=== PATIENT | female | born 1950 | race Caucasian/White ===

== ENCOUNTER 2022-01-21 21:47 | Inpatient (IN) | payer OTHER, MEDICAID ==
[~2022-01-21] VITALS: Ht 157.5 cm; Wt 95.3 kg
[2022-01-21] MEDS ORDERED: ONDANSETRON HCL 4 MG/2 ML VIAL IVP ONE (22:15)
[2022-01-21] MEDS ORDERED: NACL 0.9% 1,000 ML IV ONE (22:15)
--- NOTE | 2022-01-21 22:16 | NUR ---
Pt to bed 2 w/ c/o epigastric abdominal pain 12/19, n/v x "1 month" per pt. Pt states she has had decreased appetite and decreased energy "last few days". Pt denies blood in vomit or blood in stool. Denies fevers/body aches/chills. Pt denies chest pain. Respirations even and unlabored. Pt placed on traffic monitor specialist, bed in low position, side rails up.
[2022-01-21 22:24] VITALS: BP_SYST 98
[2022-01-21 22:42] LABS: BASOPHILS % (AUTO) 0.6 % (0.0-2.0); EOSINOPHILS # (AUTO) 0.1 K/uL (0.0-0.4); EOSINOPHILS % (AUTO) 1.5 % (0.0-4.0); HEMATOCRIT 39.6 % (36-48); HEMOGLOBIN 13.3 g/dL (12.0-16.0); LYMPHOCYTES # (AUTO) 1.6 K/uL (1.0-5.5); LYMPHOCYTES % (AUTO) 21.2 % (20.5-51.5); MEAN CORPUSCULAR HEMOGLOBIN 32 pg (27-31); MEAN CORPUSCULAR HGB CONC 34 % (32-36); MEAN CORPUSCULAR VOLUME 94 fL (79.0-98.0); MONOCYTES # (AUTO) 0.6 K/uL (0.0-1.0); NEUTROPHILS # (AUTO) 5.1 K/uL (1.8-7.7); NEUTROPHILS % (AUTO) 68.7 % (40.0-70.0); PLATELET COUNT (AUTO) 191 K/uL (130-430); RED CELL DISTRIBUTION WIDTH 14.4 % (9.0-15.0); WHITE BLOOD COUNT (AUTO) 7.5 K/uL (4.8-10.8)
[2022-01-21 22:56] LABS: CALCIUM 9.2 mg/dL (8.4-11.0); CREATININE 1.34 mg/dL (0.55-1.30)
[2022-01-21 23:02] LABS: ALBUMIN 3.8 g/dL (3.4-4.8); TOTAL BILIRUBIN 0.4 mg/dL (0.0-1.0)
[2022-01-21] MEDS ORDERED: CALCIUM GLUCONATE 1 GM in NS 100 ML IV ONE (23:45)
--- NOTE | 2022-01-22 00:11 | NUR ---
CALLED ADMITTING SPOKE TO ROSALINA TO CALL [facility] FOR AUTHORIZATION TO ADMIT OR TRANSFER
[2022-01-22] MEDS ORDERED: CALCIUM GLUCONATE 1 GM/10 ML VIAL ONE (00:15)
[2022-01-22 00:55] LABS: BILIRUBIN,URINE NEGATIVE (NEGATIVE); CLARITY/URINE CLEAR (CLEAR); COLOR,URINE YELLOW (YELLOW); GLUCOSE,URINE 3+ (NEGATIVE); KETONES,URINE NEGATIVE (NEGATIVE); LEUKOCYTE ESTERASE ,URINE NEGATIVE (NEGATIVE); NITRITE, URINE POSITIVE (NEGATIVE); PROTEIN URINE NEGATIVE (NEGATIVE); UROBILINOGEN,URINE 0.2 (0.2-1.0)
[2022-01-22 00:59] LABS: BLOOD, URINE TRACE (NEGATIVE)
--- NOTE | 2022-01-22 01:00 | NUR ---
Pt unable to provide list of at home medications.
[2022-01-22 01:04] LABS: BACTERIA,URINE MANY /HPF (None Seen); RBC,URINE 0-3 /HPF (0-3); YEAST,URINE Few /HPF (None Seen)
--- NOTE | 2022-01-22 01:25 | NUR ---
Admit bed requested Patient will be admitted to care of Dr.A MENDOZA. Admitted to TELE unit. Diagnosis ACUTE KIDNEY INJURY Inpatient (Yes or No) YES Observation (Yes or No) NO Orientation concerns or request close to nursing station (Yes or No) NO Covid Status NEGATIVE On vent or bipap NO Isolation requirements NO Needs a sitter NO From Home (Yes or if No enter name of facility) YES Requires Dialysis (Yes or No) NO Med Rec Completed (Yes of No) PENDING
[2022-01-22] MEDS: D5NS 1,000 ML IV SCH ×2 (01:30→11:40)
--- NOTE | 2022-01-22 01:35 | NUR ---
Palpated radial pulse at 70 bpm. conveyor monitor double counting.
--- NOTE | 2022-01-22 02:36 | NUR ---
Blood glucose 222.
[2022-01-22] MEDS ORDERED: MORPHINE 2 MG/ML INJ. SYRINGE IVP ONE (02:45)
[2022-01-22] MEDS ORDERED: MORPHINE 2 MG/ML INJ. SYRINGE ONE (02:51)
[2022-01-22 03:20] VITALS: BP_SYST 114
--- NOTE | 2022-01-22 03:20 | NUR ---
ADMISSION NOTE Received patient from ER via gurney. Patient admitted with diagnosis of ACUTE KIDNEY INJURY. Patient is awake, alert, oriented X4. Patient oriented to hospital room, call light, toileting, pain management and safety-teach back done. Patient informed that I will be HER nurse and that their room number is 129A. Personal belongings checked and Belongings List documented AND DAUGHTER WILL TAKE THEM HOME. Call light within reach.
--- NOTE | 2022-01-22 03:20 | NUR ---
Patient will be admitted to care of Dr. Iglesias. Admitted to telemetry unit. Will go to room 129A. Belongings list completed. Complete and up to date summary report printed. SBAR report given to Bess RN at bedside with opportunity for questions.
[2022-01-22] MEDS ORDERED: PRO40 PO (05:21)
[2022-01-22] MEDS ORDERED: ERGO1250 PO (05:21)
[2022-01-22] MEDS ORDERED: METF-518 PO (05:21)
[2022-01-22] MEDS ORDERED: DITXL5 PO (05:21)
[2022-01-22] MEDS ORDERED: SPIR25TA PO (05:21)
[2022-01-22] MEDS ORDERED: CAND32TA20 PO (05:21)
[2022-01-22] MEDS ORDERED: AMLO5TAB4 PO (05:21)
[2022-01-22] MEDS ORDERED: LIP80 PO (05:21)
[2022-01-22] MEDS ORDERED: CALC-1263 PO (05:21)
[2022-01-22] MEDS ORDERED: METO-442 PO (05:21)
[2022-01-22] MEDS ORDERED: DULA3PEN (05:21)
[2022-01-22] MEDS ORDERED: NEU300 PO (05:21)
[2022-01-22] MEDS ORDERED: ASPI-1457 PO (05:21)
[2022-01-22] MEDS ORDERED: EMPA25TA PO (05:21)
[2022-01-22] MEDS ORDERED: ERGOCALCIFEROL PO SCH (05:45)
[2022-01-22] MEDS ORDERED: DULAGLUTIDE SUBCUT SCH (05:45)
[2022-01-22] MEDS ORDERED: ONDANSETRON HCL 4 MG/2 ML VIAL IVP PRN (06:00)
[2022-01-22 06:16] LABS: BASOPHILS % (AUTO) 0.5 % (0.0-2.0); EOSINOPHILS # (AUTO) 0.1 K/uL (0.0-0.4); EOSINOPHILS % (AUTO) 1.7 % (0.0-4.0); HEMATOCRIT 37.5 % (36-48); HEMOGLOBIN 12.5 g/dL (12.0-16.0); LYMPHOCYTES # (AUTO) 1.6 K/uL (1.0-5.5); LYMPHOCYTES % (AUTO) 29.2 % (20.5-51.5); MEAN CORPUSCULAR HEMOGLOBIN 31 pg (27-31); MEAN CORPUSCULAR HGB CONC 33 % (32-36); MEAN CORPUSCULAR VOLUME 94 fL (79.0-98.0); MONOCYTES # (AUTO) 0.5 K/uL (0.0-1.0); MONOCYTES % (AUTO) 8.6 % (1.7-9.3); NEUTROPHILS # (AUTO) 3.4 K/uL (1.8-7.7); PLATELET COUNT (AUTO) 173 K/uL (130-430); RED BLOOD CELL COUNT(AUTO) 3.99 MIL/uL (4.2-6.2); RED CELL DISTRIBUTION WIDTH 14.3 % (9.0-15.0); WHITE BLOOD COUNT (AUTO) 5.6 K/uL (4.8-10.8)
--- NOTE | 2022-01-22 06:26 | NUR ---
ALL ADMITTING ORDERS ENTER, PENDING PHARMACY VERIFICATION.
[2022-01-22 06:35] LABS: CALCIUM 9.2 mg/dL (8.4-11.0); CREATININE 1.09 mg/dL (0.55-1.30); POTASSIUM 5.7 mmol/L (3.5-5.1)
[2022-01-22] MEDS: INSULIN REGULAR, HUMAN 100 UNITS/ML, 10 ML VIAL (humuLIN R) SUBCUT PRN ×4 (07:06→21:06)
--- NOTE | 2022-01-22 07:23 | NUR ---
REPORT GIVEN TO SHANNEN MULLEN FOR CONTINUITY OF CARE ALL QUESTIONS WERE ANSWERED AND CLINICAL PROJECT ASSISTANT VERBALIZED UNDERSTANDING.
[2022-01-22 07:30] VITALS: BP_SYST 125
[2022-01-22] MEDS ORDERED: ACETAMINOPHEN 325 MG TABLET PO PRN (07:45)
[2022-01-22] MEDS: amLODIPine BESYLATE 5 MG TABLET PO SCH (08:41)
[2022-01-22] MEDS: PANTOPRAZOLE SODIUM 40 MG TAB PO SCH (08:41)
[2022-01-22] MEDS: GABAPENTIN 300 MG CAPSULE PO SCH ×2 (08:41→20:49)
[2022-01-22] MEDS: METOPROLOL TARTRATE 50 MG TABLET PO SCH (08:41)
[2022-01-22] MEDS: ASPIRIN 81 MG TABLET(ECOTRIN) PO SCH (08:42)
[2022-01-22] MEDS: CALCIUM CARBONATE/VITAMIN D3 1 TAB TABLET PO SCH ×2 (08:42→20:48)
[2022-01-22] MEDS ORDERED: OXYBUTYNIN CHLORIDE 5 MG XL TAB PO SCH (09:00)
[2022-01-22] MEDS ORDERED: CANDESARTAN CILEXETIL 8 MG PO SCH (09:00)
[2022-01-22] MEDS ORDERED: SPIRONOLACTONE 25 MG TABLET (ALDACTONE) PO SCH (09:00)
[2022-01-22] MEDS ORDERED: EMPAGLIFLOZIN 20 MG PO SCH (09:00)
[2022-01-22] MEDS ORDERED: SODIUM POLYSTYRENE SULFONATE 15 GM/60 ML UDBTL PO ONE ×3 (10:15→18:45)
--- NOTE | 2022-01-22 10:47 | NUR ---
CONSULTATION PAGED REASON FOR CONSULTATION:SERA WAS CONSULT CALLED? -PERSON WHO WAS NOTIFIED:CHERIE CONSULTING PHYSICIAN:CARISSA CAREY MINIATURE SET BUILDER SPECIALTY:INFECTIOUS DISEASE MINIATURE SET BUILDER PHONE NUMBER:[phone] REQUESTING PHYSICIAN:VERONICA HERNANDEZ
--- NOTE | 2022-01-22 11:00 | NUR ---
NURSING NOTE: Pt. downgraded to Med surge
--- NOTE | 2022-01-22 11:31 | NUR ---
CONSULTATION PAGED REASON FOR CONSULTATION:NAUSEA/VOMITING WAS CONSULT CALLED?Y -PERSON WHO WAS NOTIFIED:EXCHANGE CONSULTING PHYSICIAN:FABIO CHAMPION ([employer] LECTURER) PRESIDENT SALES AND MARKETING SPECIALTY:GI PRESIDENT SALES AND MARKETING PHONE NUMBER:[phone] REQUESTING PHYSICIAN:VERONICA HERNANDEZ
--- NOTE | 2022-01-22 11:40 | NUR ---
CONSULTATION PAGED REASON FOR CONSULTATION:SERA WAS CONSULT CALLED?Y -PERSON WHO WAS NOTIFIED:IRENE CONSULTING PHYSICIAN:DOMITILA LANDON OUTREACH COORDINATOR SPECIALTY:NEPHRO OUTREACH COORDINATOR PHONE NUMBER:[phone] REQUESTING PHYSICIAN:VERONICA MARIN
[2022-01-22] MEDS: cefTRIAXone 1 GM IVPB PREMIX 50 ML IV SCH (11:56)
[2022-01-22 12:30] VITALS: BP_SYST 98
[2022-01-22] MEDS ORDERED: FUROSEMIDE 20 MG/2 ML VIAL IVP SCH (13:00)
[2022-01-22] MEDS ORDERED: DEXTROSE 50% JECT 50 ML DISP.SYRIN IVP ONE (13:15)
[2022-01-22] MEDS ORDERED: INSULIN REGULAR, HUMAN 100 UNITS/ML, 10 ML VIAL SUBCUT ONE (13:15)
[2022-01-22] MEDS ORDERED: FUROSEMIDE 20 MG/2 ML VIAL IVP ONE (13:15)
--- NOTE | 2022-01-22 13:24 | NUR ---
MD CALLED SAYED CALLED WANTED TO TALK TO RN. STATED PATIENT K 5.7 . GAVE NEW ORDERS . ORDER ENTERED .PRIMARY COVERING REMBERTO PAGE NOTIFIED.
[2022-01-22] MEDS ORDERED: INSULIN REGULAR, HUMAN 100 UNITS/ML, 10 ML VIAL IVP ONE (13:45)
[2022-01-22 16:30] VITALS: BP_SYST 92
[2022-01-22] MEDS ORDERED: INSULIN REGULAR, HUMAN 100 UNITS/ML, 10 ML VIAL SUBCUT SCH (17:00)
[2022-01-22 20:00] VITALS: BP_SYST 99
[2022-01-22] MEDS: OXYBUTYNIN CHLORIDE 5 MG TABLET PO SCH (20:49)
[2022-01-22] MEDS: ATORVASTATIN 20 MG TABLET PO SCH (20:50)
[2022-01-23] VITALS: BP_SYST 101
[2022-01-23] MEDS: D5NS 1,000 ML IV SCH ×2 (00:37→03:51)
[2022-01-23 06:00] LABS: BASOPHILS % (AUTO) 0.5 % (0.0-2.0); EOSINOPHILS # (AUTO) 0.1 K/uL (0.0-0.4); EOSINOPHILS % (AUTO) 2.2 % (0.0-4.0); HEMATOCRIT 37.7 % (36-48); HEMOGLOBIN 12.7 g/dL (12.0-16.0); LYMPHOCYTES # (AUTO) 1.9 K/uL (1.0-5.5); LYMPHOCYTES % (AUTO) 32.6 % (20.5-51.5); MEAN CORPUSCULAR HEMOGLOBIN 32 pg (27-31); MEAN CORPUSCULAR HGB CONC 34 % (32-36); MEAN CORPUSCULAR VOLUME 94 fL (79.0-98.0); MONOCYTES # (AUTO) 0.4 K/uL (0.0-1.0); MONOCYTES % (AUTO) 7.6 % (1.7-9.3); NEUTROPHILS # (AUTO) 3.3 K/uL (1.8-7.7); NEUTROPHILS % (AUTO) 57.1 % (40.0-70.0); PLATELET COUNT (AUTO) 180 K/uL (130-430); RED CELL DISTRIBUTION WIDTH 14.2 % (9.0-15.0); WHITE BLOOD COUNT (AUTO) 5.7 K/uL (4.8-10.8)
[2022-01-23] MEDS: INSULIN REGULAR, HUMAN 100 UNITS/ML, 10 ML VIAL (humuLIN R) SUBCUT PRN ×4 (06:18→22:57)
[2022-01-23 06:43] LABS: ALANINE AMINOTRANSFERASE 23 U/L (12-78); ALBUMIN 3.2 g/dL (3.4-4.8); ANION GAP 6 (5-15); ASPARTATE AMINOTRANSFERASE 22 U/L (10-37); CALCIUM 8.7 mg/dL (8.4-11.0); CHLORIDE 108 mmol/L (98-107); CREATININE 1.01 mg/dL (0.55-1.30); GLUCOSE 193 mg/dL (70-99); PHOSPHORUS 4.1 mg/dL (2.7-4.5); POTASSIUM 5.3 mmol/L (3.5-5.1); SODIUM SERUM 141 mmol/L (136-145); TOTAL BILIRUBIN 0.4 mg/dL (0.0-1.0); UREA NITROGEN, BLOOD 35 mg/dL (8-21)
--- NOTE | 2022-01-23 07:15 | NUR ---
received report from endorsing concrete pipe maker RN for the continuity of care, patient lying on bed, awake, oriented, no signs of acute distress noted at this time, will continue to monitor.
[2022-01-23 07:19] LABS: GFR AFRICAN AMERICAN 70 mL/min (>90)
[2022-01-23 07:20] LABS: C-REACTIVE PROTEIN QUANT < 0.2 mg/dL (0-0.5)
[2022-01-23] MEDS ORDERED: LOSARTAN POTASSIUM 50 MG TABLET (COZAAR) PO SCH (09:00)
[2022-01-23] MEDS: amLODIPine BESYLATE 5 MG TABLET PO SCH (09:00)
[2022-01-23] MEDS: METOPROLOL TARTRATE 50 MG TABLET PO SCH (09:00)
[2022-01-23] MEDS: ASPIRIN 81 MG TABLET(ECOTRIN) PO SCH (09:17)
[2022-01-23] MEDS: OXYBUTYNIN CHLORIDE 5 MG TABLET PO SCH ×2 (09:17→22:54)
[2022-01-23] MEDS: GABAPENTIN 300 MG CAPSULE PO SCH ×2 (09:17→22:54)
[2022-01-23] MEDS: CALCIUM CARBONATE/VITAMIN D3 1 TAB TABLET PO SCH ×2 (09:18→21:00)
[2022-01-23] MEDS: PANTOPRAZOLE SODIUM 40 MG TAB PO SCH (09:18)
[2022-01-23] MEDS ORDERED: SODIUM POLYSTYRENE SULFONATE 15 GM/60 ML UDBTL PO ONE (10:30)
[2022-01-23 10:49] LABS: ERYTHROCYTE SEDIMENTATION RATE 14 MM/HR (0-20)
[2022-01-23 12:30] VITALS: BP_SYST 119
[2022-01-23] MEDS: cefTRIAXone 1 GM IVPB PREMIX 50 ML IV SCH (12:35)
[2022-01-23] MEDS: ACETAMINOPHEN 325 MG TABLET PO PRN (13:51)
[2022-01-23 16:00] VITALS: BP_SYST 107
--- NOTE | 2022-01-23 19:30 | NUR ---
RECIVED REPORT ON PATIENT FROM REMBERTO THOMAS, ASSUMED CARE, AND STARTED ASSESSMENT.
[2022-01-23 20:00] VITALS: BP_SYST 115
[2022-01-23] MEDS: ATORVASTATIN 20 MG TABLET PO SCH (22:54)
[2022-01-24] MEDS: INSULIN REGULAR, HUMAN 100 UNITS/ML, 10 ML VIAL (humuLIN R) SUBCUT PRN ×2 (06:29→11:18)
[2022-01-24 06:44] LABS: BASOPHILS % (AUTO) 0.6 % (0.0-2.0); EOSINOPHILS # (AUTO) 0.1 K/uL (0.0-0.4); EOSINOPHILS % (AUTO) 2.3 % (0.0-4.0); HEMATOCRIT 36.6 % (36-48); HEMOGLOBIN 12.2 g/dL (12.0-16.0); LYMPHOCYTES % (AUTO) 32.3 % (20.5-51.5); MEAN CORPUSCULAR HEMOGLOBIN 31 pg (27-31); MEAN CORPUSCULAR HGB CONC 33 % (32-36); MEAN CORPUSCULAR VOLUME 94 fL (79.0-98.0); MONOCYTES # (AUTO) 0.5 K/uL (0.0-1.0); MONOCYTES % (AUTO) 8.3 % (1.7-9.3); NEUTROPHILS # (AUTO) 3.5 K/uL (1.8-7.7); NEUTROPHILS % (AUTO) 56.5 % (40.0-70.0); PLATELET COUNT (AUTO) 175 K/uL (130-430); RED BLOOD CELL COUNT(AUTO) 3.89 MIL/uL (4.2-6.2); WHITE BLOOD COUNT (AUTO) 6.1 K/uL (4.8-10.8)
[2022-01-24 07:08] LABS: ANION GAP 7 (5-15); CHLORIDE 105 mmol/L (98-107); CREATININE 0.88 mg/dL (0.55-1.30); GLUCOSE 177 mg/dL (70-99); POTASSIUM 4.2 mmol/L (3.5-5.1); SODIUM SERUM 140 mmol/L (136-145); UREA NITROGEN, BLOOD 25 mg/dL (8-21)
--- NOTE | 2022-01-24 07:10 | NUR ---
REPORT WAS GIVEN TO REMBERTO THOMAS, AND CARE WAS TURNED OVER TO HIM.
[2022-01-24 08:00] VITALS: BP_SYST 114
[2022-01-24 08:00] LABS: GFR AFRICAN AMERICAN 82 mL/min (>90)
[2022-01-24 08:35] LABS: C-REACTIVE PROTEIN QUANT < 0.2 mg/dL (0-0.5)
[2022-01-24] MEDS: METOPROLOL TARTRATE 50 MG TABLET PO SCH (09:00)
[2022-01-24] MEDS: amLODIPine BESYLATE 5 MG TABLET PO SCH (09:00)
[2022-01-24] MEDS: GABAPENTIN 300 MG CAPSULE PO SCH (10:55)
[2022-01-24] MEDS: CALCIUM CARBONATE/VITAMIN D3 1 TAB TABLET PO SCH (10:55)
[2022-01-24] MEDS: ASPIRIN 81 MG TABLET(ECOTRIN) PO SCH (10:56)
[2022-01-24] MEDS: PANTOPRAZOLE SODIUM 40 MG TAB PO SCH (11:02)
[2022-01-24] MEDS: OXYBUTYNIN CHLORIDE 5 MG TABLET PO SCH (11:03)
[2022-01-24] MEDS: cefTRIAXone 1 GM IVPB PREMIX 50 ML IV SCH (11:04)
[2022-01-24 11:15] LABS: ERYTHROCYTE SEDIMENTATION RATE 14 MM/HR (0-20)
[2022-01-24 12:00] VITALS: BP_SYST 109
[2022-01-24] MEDS ORDERED: CIPR500T5 PO (12:47)
[2022-01-24] MEDS ORDERED: ONDA-8 TL (12:50)
[2022-01-24] MEDS: ACETAMINOPHEN 325 MG TABLET PO PRN (15:07)
[2022-01-24 16:42] VITALS: BP_SYST 109
[2022-01-24 17:23] VITALS: BP_SYST 124
--- NOTE | 2022-01-24 17:40 | NUR ---
D/C Patient Patient given medication reconciliation form and D/C instructions. Exit Care provided. Patient verbalized understanding. MD discussed with patient the results and treatment provided. Ambulatory with steady gait for discharge to home. Patient in stable condition, ID band removed. IV catheter removed, intact and dressing applied, no active bleeding. E script sent to preferred pharmacy. All belongings sent with patient.
== END 2022-01-24 17:40 | disposition home or self-care (01) | DRG 871 ==
LOC: SED 21:47 → STU 01-22 01:23 → SMU 01-22 10:37
PROVIDERS: ADMIT Preventive Medicine Preventive Medicine/Occupational Environmental Medicine; ATTEND Preventive Medicine Preventive Medicine/Occupational Environmental Medicine
DX: A41.9 Sepsis, unspecified organism (principal); N17.0 Acute kidney failure with tubular necrosis; E87.1 Hypo-osmolality and hyponatremia; N39.0 Urinary tract infection, site not specified; E11.65 Type 2 diabetes mellitus with hyperglycemia; E87.5 Hyperkalemia; I12.9 Hypertensive chronic kidney disease with stage 1 through stage 4 chronic kidney disease, or unspecified chronic kidney disease; Z20.822 Contact with and (suspected) exposure to COVID-19; N18.9 Chronic kidney disease, unspecified; K52.9 Noninfective gastroenteritis and colitis, unspecified; E88.09 Other disorders of plasma-protein metabolism, not elsewhere classified; R79.89 Other specified abnormal findings of blood chemistry; E11.22 Type 2 diabetes mellitus with diabetic chronic kidney disease; B96.20 Unspecified Escherichia coli [E. coli] as the cause of diseases classified elsewhere; E66.9 Obesity, unspecified; Z79.4 Long term (current) use of insulin; Z68.38 Body mass index [BMI] 38.0-38.9, adult; Z90.49 Acquired absence of other specified parts of digestive tract
CPT/HCPCS: 36415; 76376; 76770; 80048; 80053; 81000; 82570; 82962; 83735; 84100; 84484; 85025; 85651-TC; 86140; 87086; 93005; 96365; 99291; 99292; J0610; J0696; J1815; J1940; J2270; J2405; J7030

== ENCOUNTER 2023-10-07 15:06 | Inpatient (IN) | payer OTHER, MEDICAID ==
[~2023-10-07] VITALS: Ht 157.5 cm; Wt 95.3 kg
[~2023-10-07 15:06] MED LIST: AMLO5TAB4 PO; ASPI-1457 PO; CALC-1263 PO; CAND32TA20 PO; CIPR500T5 PO; DITXL5 PO; DULA3PEN; EMPA25TA PO; ERGO1250 PO; LIP80 PO; METF-518 PO; METO-442 PO; NEU300 PO; ONDA-8 TL; PRO40 PO; SPIR25TA PO
[2023-10-07 15:12] VITALS: BP_SYST 153; PULSE 125; RESP 18; TEMP 98.3; O2SAT 98
[2023-10-07] MEDS: NACL 0.9% 1,000 ML IV ONE ×2 (15:46→23:52)
[2023-10-07 16:00] LABS: BASOPHILS % (AUTO) 0.2 % (0.0-2.0); EOSINOPHILS % (AUTO) 0.1 % (0.0-4.0); HEMATOCRIT 38.8 % (36-48); HEMOGLOBIN 13.3 g/dL (12.0-16.0); LYMPHOCYTES # (AUTO) 0.7 K/uL (1.0-5.5); LYMPHOCYTES % (AUTO) 6.3 % (20.5-51.5); MEAN CORPUSCULAR HEMOGLOBIN 32 pg (27-31); MEAN CORPUSCULAR HGB CONC 34 % (32-36); MEAN CORPUSCULAR VOLUME 92 fL (79.0-98.0); MONOCYTES # (AUTO) 0.5 K/uL (0.0-1.0); MONOCYTES % (AUTO) 4.6 % (1.7-9.3); NEUTROPHILS # (AUTO) 9.8 K/uL (1.8-7.7); NEUTROPHILS % (AUTO) 88.8 % (40.0-70.0); PLATELET COUNT (AUTO) 189 K/uL (130-430); RED CELL DISTRIBUTION WIDTH 13.9 % (9.0-15.0); WHITE BLOOD COUNT (AUTO) 11.1 K/uL (4.8-10.8)
[2023-10-07] MEDS: ONDANSETRON HCL 4 MG/2 ML VIAL IVP ONE (16:02)
[2023-10-07 16:16] LABS: CALCIUM 9.1 mg/dL (8.4-11.0); CREATININE 1.28 mg/dL (0.55-1.30); GLUCOSE 219 mg/dL (74-106); UREA NITROGEN, BLOOD 37 mg/dL (8-21)
[2023-10-07 16:36] LABS: SODIUM SERUM 136 mmol/L (136-145)
[2023-10-07 16:37] LABS: ANION GAP 18 (5-15); CARBON DIOXIDE 20 mmol/L (23-29); CHLORIDE 98 mmol/L (98-107)
[2023-10-07 16:49] LABS: BILIRUBIN,URINE NEGATIVE (NEGATIVE); COLOR,URINE YELLOW (YELLOW); GLUCOSE,URINE 3+ (NEGATIVE); KETONES,URINE NEGATIVE (NEGATIVE); LEUKOCYTE ESTERASE ,URINE TRACE (NEGATIVE); NITRITE, URINE POSITIVE (NEGATIVE); PH,URINE 5.5 (5.0-8.0); PROTEIN URINE NEGATIVE (NEGATIVE); UROBILINOGEN,URINE 0.2 (0.2-1.0)
[2023-10-07] MEDS: KETOROLAC TROMETHAMINE 30 MG VIAL IVP ONE (16:50)
[2023-10-07] MEDS: DIPHENHYDRAMINE INJ 50 MG/ML VIAL IVP ONE (16:50)
[2023-10-07] MEDS: METOCLOPRAMIDE HCL 10 MG/2 ML VIAL IVP ONE (16:50)
[2023-10-07 16:51] LABS: BLOOD, URINE TRACE (NEGATIVE); CLARITY/URINE HAZY (CLEAR)
[2023-10-07] MEDS ORDERED: cefTRIAXone 1 GM VIAL ONE (17:26)
[2023-10-07] MEDS: cefTRIAXone 1 GM in D5W 50 ML IV ONE (17:29)
[2023-10-07 17:37] LABS: BACTERIA,URINE MODERATE /HPF (None Seen); WBC,URINE 20-50 /HPF (0-3)
[2023-10-07] MEDS ORDERED: HYDROcodone/ACETAMIN 10-325 MG TAB PO PRN (18:00)
[2023-10-07] MEDS ORDERED: ONDANSETRON HCL 4 MG/2 ML VIAL IVP PRN (18:00)
[2023-10-07] MEDS ORDERED: LORazepam 2 MG/ML VIAL IVP PRN (18:00)
[2023-10-07] MEDS: METOPROLOL TARTRATE 25 MG TABLET PO ONE (18:15)
[2023-10-07] MEDS ORDERED: AMLO5TAB92 PO (18:16)
[2023-10-07] MEDS ORDERED: CAND16TA29 PO (18:16)
[2023-10-07] MEDS ORDERED: LATA2.5D14 EACH EYE (18:16)
[2023-10-07] MEDS ORDERED: CAND32TA22 PO (18:16)
[2023-10-07] MEDS ORDERED: METO-304 PO (18:16)
[2023-10-07] MEDS ORDERED: DAPA10TA PO (18:16)
[2023-10-07] MEDS ORDERED: ATOR-1 PO (18:16)
[2023-10-07] MEDS ORDERED: SERT25TA77 PO (18:18)
[2023-10-07] MEDS ORDERED: GABA300T25 PO (18:18)
[2023-10-07] MEDS: HYDROcodone/ACETAMIN 5-325 MG TAB (NORCO/ VICODIN) PO PRN (18:35)
[2023-10-07] MEDS ORDERED: DEXTROSE 50% JECT 50 ML DISP.SYRIN IVP PRN (19:30)
[2023-10-07] MEDS ORDERED: ZOLPIDEM TARTRATE 5 MG TABLET PO PRN (19:30)
[2023-10-07] MEDS: NACL 0.9% 1,000 ML IV SCH (19:49)
[2023-10-07] MEDS: LATANOPROST 2.5 ML DROPS (XALATAN) BOTH EYES SCH (21:00)
[2023-10-07 22:41] LABS: ALANINE AMINOTRANSFERASE 18 U/L (12-78); ALBUMIN 3.3 g/dL (3.4-4.8); ASPARTATE AMINOTRANSFERASE < 5 U/L (10-37); BILIRUBIN,DIRECT 0.1 mg/dL (0.0-0.3); LIPASE 28 U/L (16-77); TOTAL BILIRUBIN 0.4 mg/dL (0.0-1.0); TOTAL PROTEIN, SERUM 7.4 g/dL (6.4-8.3)
[2023-10-07 23:06] VITALS: BP_SYST 91; PULSE 89; RESP 18; TEMP 98.6; O2SAT 94
[2023-10-07] MEDS: ATORVASTATIN 20 MG TABLET PO SCH (23:58)
[2023-10-07] MEDS: GABAPENTIN 300 MG CAPSULE PO SCH (23:58)
[2023-10-08] VITALS (8 sets, daily range): BP systolic 91–171; PULSE 83–118; RESP 16–21; TEMP 96.8–99.7; O2SAT 93–96
[2023-10-08] MEDS: HEPARIN SODIUM,PORCINE 5,000 UNITS/ML VIAL SUBCUT SCH (00:02)
[2023-10-08] MEDS: INSULIN LISPRO SLIDING SCALE 100 UNITS/ML, 3 ML VIAL (humaLOG) SUBCUT PRN (00:07)
[2023-10-08] MEDS: NACL 0.9% 1,000 ML IV ONE (02:50)
[2023-10-08] MEDS: cefTRIAXone 1 GM IVPB PREMIX 50 ML IV ONE ×2 (02:55→03:19)
[2023-10-08] MEDS: VANCOMYCIN HCL 1 GM/NS PREMIX 250 ML IV ONE (02:57)
[2023-10-08] MEDS: ACETAMINOPHEN 325 MG TABLET PO PRN ×2 (02:59→18:27)
[2023-10-08] MEDS ORDERED: IPRATROPIUM/ALBUTEROL SULFATE 3 ML AMPUL.NEB (DUONEB) INH PRN ×2 (03:00)
[2023-10-08] MEDS: ONDANSETRON HCL 4 MG/2 ML VIAL IVP ONE (03:00)
[2023-10-08] MEDS: VANCOMYCIN HCL 1000 MG/VIAL IV ONE (03:19)
[2023-10-08 04:05] LABS: ANION GAP 11 (5-15); CALCIUM 7.8 mg/dL (8.4-11.0); CARBON DIOXIDE 20 mmol/L (23-29); CHLORIDE 106 mmol/L (98-107); CREATININE 1.21 mg/dL (0.55-1.30); GLUCOSE 150 mg/dL (74-106); SODIUM SERUM 137 mmol/L (136-145); UREA NITROGEN, BLOOD 37 mg/dL (8-21)
[2023-10-08 04:09] LABS: ALANINE AMINOTRANSFERASE 21 U/L (12-78); ASPARTATE AMINOTRANSFERASE 6 U/L (10-37); TOTAL BILIRUBIN 0.4 mg/dL (0.0-1.0); TOTAL PROTEIN, SERUM 6.4 g/dL (6.4-8.3)
[2023-10-08 04:21] LABS: BASOPHILS % (AUTO) 0.3 % (0.0-2.0); EOSINOPHILS % (AUTO) 0.3 % (0.0-4.0); HEMATOCRIT 36.7 % (36-48); HEMOGLOBIN 12.1 g/dL (12.0-16.0); LYMPHOCYTES # (AUTO) 0.6 K/uL (1.0-5.5); LYMPHOCYTES % (AUTO) 11.9 % (20.5-51.5); MEAN CORPUSCULAR HEMOGLOBIN 31 pg (27-31); MEAN CORPUSCULAR HGB CONC 33 % (32-36); MEAN CORPUSCULAR VOLUME 94 fL (79.0-98.0); MONOCYTES # (AUTO) 0.1 K/uL (0.0-1.0); MONOCYTES % (AUTO) 1.4 % (1.7-9.3); NEUTROPHILS # (AUTO) 4.4 K/uL (1.8-7.7); NEUTROPHILS % (AUTO) 86.1 % (40.0-70.0); PLATELET COUNT (AUTO) 152 K/uL (130-430); RED BLOOD CELL COUNT(AUTO) 3.89 MIL/uL (4.2-6.2); RED CELL DISTRIBUTION WIDTH 14.2 % (9.0-15.0); WHITE BLOOD COUNT (AUTO) 5.1 K/uL (4.8-10.8)
[2023-10-08 04:22] LABS: INR 1.1 (0.8-1.2); PROTHROMBIN TIME 11.7 SECS (9.5-12.5)
[2023-10-08] MEDS: amLODIPine BESYLATE 5 MG TABLET PO SCH (09:00)
[2023-10-08] MEDS ORDERED: amLODIPine BESYLATE 5 MG TABLET PO SCH (09:00)
[2023-10-08] MEDS ORDERED: METOPROLOL SUCCINATE 50 MG TAB.SR.24H (TOPROL XL) PO SCH (09:00)
[2023-10-08] MEDS ORDERED: iohexoL 350 mgI/mL, 100 ML INFUS..BTL IV ONE (09:13)
[2023-10-08] MEDS: ASPIRIN 81 MG TAB.CHEW PO SCH (10:08)
[2023-10-08] MEDS: METOCLOPRAMIDE HCL 10 MG/2 ML VIAL IVP ONE (12:45)
[2023-10-08] MEDS ORDERED: INSU300I3 SQ (13:09)
[2023-10-08] MEDS ORDERED: OMEG-42 PO (13:09)
[2023-10-08] MEDS ORDERED: INSU200I SQ (13:09)
[2023-10-08] MEDS ORDERED: OSC500 PO (13:09)
[2023-10-08] MEDS: METOCLOPRAMIDE HCL 10 MG/2 ML VIAL IVP SCH (17:28)
[2023-10-08] MEDS: DOCUSATE SODIUM 100 MG CAPSULE PO SCH (20:19)
[2023-10-08] MEDS: metroNIDAZOLE 500 mg/NS 200 ML IV ONE (22:19)
[2023-10-08] MEDS: AZITHROMYCIN 500 MG/VIAL (ZITHROMAX) IV ONE (22:20)
[2023-10-08] MEDS: metroNIDAZOLE 500 mg/NS 100 ML IV SCH (22:23)
[2023-10-08] MEDS: AZITHROMYCIN 500 MG in NS 250 ML IV SCH (23:28)
[2023-10-09 00:15] VITALS: BP_SYST 101; PULSE 87; RESP 16; TEMP 96.8; O2SAT 93
[2023-10-09 06:45] LABS: BASOPHILS % (AUTO) 0.3 % (0.0-2.0); EOSINOPHILS # (AUTO) 0.2 K/uL (0.0-0.4); EOSINOPHILS % (AUTO) 2.1 % (0.0-4.0); HEMATOCRIT 35.3 % (36-48); HEMOGLOBIN 11.8 g/dL (12.0-16.0); LYMPHOCYTES # (AUTO) 1.3 K/uL (1.0-5.5); LYMPHOCYTES % (AUTO) 17.4 % (20.5-51.5); MEAN CORPUSCULAR HEMOGLOBIN 31 pg (27-31); MEAN CORPUSCULAR HGB CONC 33 % (32-36); MEAN CORPUSCULAR VOLUME 94 fL (79.0-98.0); MONOCYTES # (AUTO) 1.2 K/uL (0.0-1.0); NEUTROPHILS # (AUTO) 4.9 K/uL (1.8-7.7); NEUTROPHILS % (AUTO) 64.2 % (40.0-70.0); PLATELET COUNT (AUTO) 195 K/uL (130-430); RED BLOOD CELL COUNT(AUTO) 3.77 MIL/uL (4.2-6.2); RED CELL DISTRIBUTION WIDTH 14.2 % (9.0-15.0); WHITE BLOOD COUNT (AUTO) 7.7 K/uL (4.8-10.8)
[2023-10-09 07:03] LABS: ANION GAP 5 (5-15); CALCIUM 8.8 mg/dL (8.4-11.0); CARBON DIOXIDE 25 mmol/L (23-29); CHLORIDE 111 mmol/L (98-107); CREATININE 0.92 mg/dL (0.55-1.30); GLUCOSE 143 mg/dL (74-106); POTASSIUM 4.5 mmol/L (3.5-5.1); SODIUM SERUM 141 mmol/L (136-145); UREA NITROGEN, BLOOD 17 mg/dL (8-21)
[2023-10-09 08:00] VITALS: BP_SYST 131; PULSE 101; RESP 18; TEMP 98.8; O2SAT 93
[2023-10-09] MEDS: cefTRIAXone 1 GM in D5W 50 ML IV SCH (08:48)
[2023-10-09] MEDS: INSULIN GLARGINE 100 UNITS/ML, 10 ML VIAL SUBCUT SCH (08:50)
[2023-10-09] MEDS ORDERED: VANCOMYCIN HCL 1.25 GM/NS 250 ML IV SCH (09:00)
[2023-10-09 11:50] VITALS: BP_SYST 112; PULSE 92; RESP 20; TEMP 99; O2SAT 93
[2023-10-09] MEDS: BISACODYL 5 MG TABLET.DR (DULCOLAX) PO ONE (12:03)
[2023-10-09 16:49] VITALS: BP_SYST 106; PULSE 86; RESP 20; TEMP 99.1; O2SAT 95
[2023-10-09 19:50] VITALS: O2SAT 96
[2023-10-09 20:00] VITALS: BP_SYST 121; PULSE 91; RESP 16; TEMP 97.6; O2SAT 96
[2023-10-10 00:33] VITALS: BP_SYST 117; PULSE 85; RESP 19; TEMP 98.4; O2SAT 96
[2023-10-10 08:01] VITALS: BP_SYST 117; PULSE 88; RESP 17; TEMP 97.4; O2SAT 96
[2023-10-10] MEDS ORDERED: LEVO-62 PO (09:36)
[2023-10-10 10:17] VITALS: BP_SYST 117; PULSE 88; RESP 17; TEMP 97.4; O2SAT 96
== END 2023-10-10 11:00 | disposition home or self-care (01) | DRG 177 ==
LOC: SED 15:06 → SMU 17:56 → STU 10-08 02:57
PROVIDERS: ADMIT Internal Medicine; ATTEND Internal Medicine
DX: J69.0 Pneumonitis due to inhalation of food and vomit (principal); J96.01 Acute respiratory failure with hypoxia; K56.600 Partial intestinal obstruction, unspecified as to cause; N39.0 Urinary tract infection, site not specified; K56.7 Ileus, unspecified; E86.0 Dehydration; I12.9 Hypertensive chronic kidney disease with stage 1 through stage 4 chronic kidney disease, or unspecified chronic kidney disease; E04.1 Nontoxic single thyroid nodule; E11.22 Type 2 diabetes mellitus with diabetic chronic kidney disease; N18.30 Chronic kidney disease, stage 3 unspecified; Z79.899 Other long term (current) drug therapy
CPT/HCPCS: 36415; 70450-TC; 71045; 71275; 80048; 80053; 80076; 80202; 81000; 81001; 81015; 82948; 83037; 83605; 83690; 83880; 84484; 85025; 85379; 85610; 85730; 87040; 87086; 87186; 93005; 94760; 99285; G0378; J0456; J0696; J1644; J1815; J1885; J2405; J2765; J3370; J3490; J7050; J7060; Q9967